=== PATIENT | female | born 1985 | race Two or more races ===

== ENCOUNTER 2017-09-16 11:11 | Emergency (ER) | payer MEDICAID ==
[~2017-09-16] VITALS: Ht 160 cm; Wt 62.1 kg
[2017-09-16 11:46] LABS: Hematocrit 38.9 % (36.0-46.0); Hemoglobin 13.4 g/dL (12.2-16.2); Mean Corpuscular Hemoglobin 32.3 pg (28.0-32.0); Mean Corpuscular Hgb Conc. 34.5 g/dL (32.0-36.0); Mean Corpuscular Volume 93.7 fL (80.0-100.0); Platelet Count (auto) 294 10^3/uL (140-450); Red Blood Cells 4.16 10^6/uL (4.0-5.20); White Blood Cell 8.8 10^3/uL (4.4-10.8)
[2017-09-16 12:04] LABS: Albumin 3.7 g/dL (3.4-5.0); BUN/Creatinine Ratio 31.9; Bilirubin, Total 0.4 mg/dL (0.2-1.0); Calcium 8.3 mg/dL (8.5-10.1); Potassium 3.3 mmol/L (3.5-5.1); Total Protein 7.8 g/dL (6.4-8.2)
[2017-09-16 12:23] LABS: Band Neutrophils % (manual) 0; Basophils % (manual) 0 (0.0-2.0); Blast Cells 0; Metamyelocytes % 0; Myelocytes % 0; Promyelocytes % 0; Reactive Lymphocytes 0
[2017-09-16 12:30] VITALS: BP 99/58
[2017-09-16 12:32] LABS: Urine Bacteria MOD /hpf (None Seen); Urine Blood Negative /uL (Negative); Urine Mucus FEW (None Seen); Urine Specific Gravity 1.027 (1.001-1.035); Urine WBC 40 /hpf (0 - 5)
[2017-09-16 13:20] LABS: Eosinophils % (manual) 5 (0-7); Lymphocytes % (manual) 30 (10.0-50.0); Monocytes % (manual) 7 (0-12)
== END 2017-09-16 14:29 | disposition home or self-care (01) ==
LOC: ER 11:11
DX: N39.0 Urinary tract infection, site not specified (principal)
CPT/HCPCS: 36415; 80053; 81001; 81025; 82150; 83690; 85007; 85027